=== PATIENT | male | born 1935 | race Caucasian/White ===

== ENCOUNTER → 2023-02-08 | Outpatient (CLI) | payer MEDICARE, SELFPAY ==
--- OUTSIDE RECORDS SUMMARY | 2023-02-08 06:58 | XMS RPT_ITS | CCD ---
Author Name Unknown Address [address] [place] [address] Organization [facility] Care Team Providers Care Electric Locomotive Firer/Fireman Name Role Phone Chris Nataliia Upton Unavailable Veronica PRESLEY, Janice Floyd Unavailable Unavailable PerezNataliia Unavailable Medications Completed/Discontinued Medications Medication Drug Class(es) Dates Sig (Normalized) Sig (Original) aspirin 81 mg oral tablet (6 sources) Platelet Aggregation Inhibitor, Nonsteroidal Anti-inflammatory Drug Start: 05-12-2010 take 1 tablet by mouth once daily ASPIRIN 81 MG TABS One tablet by mouth daily ASPIRIN [id number] Janice Martin RN Problems Active Problems Problem Classification Problem Date Documented Date Episodic/Chronic Coronary atherosclerosis and other heart disease (6 sources) Atherosclerotic heart disease of [place] coronary artery without angina pectoris; Translations: [Coronary arteriosclerosis] Onset: 01-03-2012 08-02-2016 Chronic Disorders of lipid metabolism (3 sources) Hyperlipidemia; Translations: [Hyperlipidemia, unspecified] Onset: 05-12-2010 05-12-2010 Chronic Essential hypertension (3 sources) Hypertensive disorder; Translations: [Essential (primary) hypertension] Onset: 08-31-2014 08-31-2014 Chronic Unclassified (2 sources) Long-term drug therapy; Translations: [Other terminal operations supervisor (current) drug therapy] Onset: 05-12-2010 05-12-2010 Unclassified (2 sources) 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; Translations: [Presence of aortocoronary bypass graft] Onset: 12-20-2012 08-02-2016 Past or Other Problems Problem Classification Problem Date Documented Da te Episodic/Chronic Coronary atherosclerosis and other heart disease (1 source) Presence of aortocoronary bypass graft; Translations: [Presence of aortocoronary bypass graft] Onset: 12-20-2012 08-02-2016 Episodic Nonspecific chest pain (12 sources) Precordial pain; Translations: [Chest pain, unspecified] Onset: 05-12-2010 Resolved: 08-02-2016 08-02-2016 Episodic Other aftercare (1 source) Other senior living (current) drug therapy; Translations: [Other senior living (current) drug therapy] Onset: 05-12-2010 05-12-2010 Episodic Other lower respiratory disease (6 sources) Dyspnea; Translations: [Shortness of breath] Onset: 05-12-2010 Resolved: 08-02-2016 05-12-2010 Episodic Other nutritional; endocrine; and metabolic disorders (3 sources) Body mass index (BMI) 27.0-27.9, adult; Translations: [Body mass index (BMI) 27.0-27.9, adult] Onset: 12-20-2012 12-20-2012 Episodic Other screening for suspected conditions (not mental disorders or infectious disease) (6 sources) Abnormal result of cardiovascular function study, unspecified; Translations: [Abnormal result of cardiovascular function study, unspecified] Onset: 05-12-2010 Resolved: 08-02-2016 05-12-2010 Episodic Residual codes; unclassified (3 sources) Family history of stroke; Translations: [Family history of stroke] 07-18-2013 Episodic Unclassified (1 source) Coronary artery bypass grafts x 3 ; Translations: [Presence of coronary angioplasty implant and graft] Onset: 12-20-2012 12-20-2012 Results Test Name Value Interpretation Reference Range Facil ity Vital Signs Date Time Vital Sign Value Performing Clinician Sushma gao 08-03-2016 08:39-0400 BMI (Body Mass Index) 27 kg/m2 Nataliia [facility] Work Phone: 08-03-2016 08:39-0400 BP Diastolic 70 mm[Hg] Nataliia Smith [facility] Work Phone: 08-03-2016 08:39-0400 BP Systolic 130 mm[Hg] [facility] Work Phone: 08-03-2016 08:39-0400 Height 180.34 cm Nataliia Smith [facility] Work Phone: 08-03-2016 08:39-0400 Pulse (Heart Rate) 64 /min Nataliia Perez [facility] Work Phone: 08-03-2016 08:39-0400 Respiratory Rate 20 /min Nataliia Perez [facility] Work Phone: 08-03-2016 08:39-0400 Weight 87.82 kg Nataliia Perez [facility] Work Phone: 08-12-2014 10:08-0400 BMI (Body Mass Index) 27.7 kg/m2 Janice [facility] Work Phone: 08-12-2014 10:08-0400 BP Diastolic 64 mm[Hg] Janice Martin RN [facility] Work Phone: 08-12-2014 10:08-0400 BP Systolic 124 mm[Hg] Janice Martin RN [facility] Work Phone: 08-12-2014 10:08-0400 BSA (Body Surface Area) 2.1 m2 Janice Martin RN [facility] Work Phone: 08-12-2014 10:08-0400 Pulse (Heart Rate) 56 /min Janice Martin RN [facility] Work Phone: 08-12-2014 10:08-0400 Respiratory Rate 20 /min Janice Martin RN [facility] Work Phone: 08-12-2014 10:08-0400 Weight 90.08 kg Janice Martin RN [facility] Work Phone: 07-18-2013 14:10-0400 Height 180.34 cm Janice Martin RN [facility] Work Phone: 09-13-2011 14:45-0400 Heart rate 425 ms Janice Martin RN [facility] Work Phone: 09-13-2011 14:45-0400 Heart rate 59 /min Janice Martin RN [facility] Work Phone: 09-13-2011 14:43-0400 Body Temperature 98.3 [degF] Janice Martin RN [facility] Work Phone: 09-13-2011 [id number] Pulse Oximetry 96 % Janice Martin RN [facility] Work Phone: Procedures Date Procedure Procedure Detail Performing Clinician Start: 08-03-2016 End: 08-03-2016 MICHELLE Munroe MD Start: 08-03-2016 End: 08-03-2016 Follow Up Appt 1 year Wilber Munroe MD Start: 08-12-2014 End: 08-12-2014 Dietary management education, guidance, and counseling Janice Martin RN Start: 08-12-2014 End: 08-12-2014 MICHELLE Munroe MD Start: 08-12-2014 End: 08-13-2014 Documentation of current medications Wilber Munroe MD Start: 08-12-2014 End: 08-12-2014 Follow Up Appt 1 year Wilber Munroe MD Start: 12-09-2013 End: 12-09-2013 *Hepatic Function Panel Sandy Castillo Start: 12-09-2013 End: 12-09-2013 Lipid panel [AGGREGATE] Sandy Castillo Start: 07-18-2013 End: 07-18-2013 Follow Up Appt 6 months Sandy Castillo Start: 07-18-2013 End: 07-18-2013 MMM Wilber Munroe MD Start: 06-12-2013 End: 07-08-2013 *Hepatic Function Panel Sandy Castillo Start: 06-12-2013 End: 07-08-2013 Lipid panel [AGGREGATE] Sandy Castillo Start: 12-20-2012 Coronary artery bypa ss grafts x 3 CORONARY ARTERY BYPASS GRAFT, THREE VESSEL, HX OF Janice Martin RN Start: 12-20-2012 End: 12-20-2012 Follow Up Appt 6 months Sandy Castillo Start: 12-20-2012 End: 12-20-2012 MMM Wilber Munroe MD Start: 12-13-2012 End: 12-17-2012 *Hepatic Function Panel Sandy Castillo Start: 12-13-2012 End: 12-17-2012 Lipid panel [AGGREGATE] Sandy Castillo Start: 07-09-2012 End: 07-09-2012 SECOND HAND Mariana Hall PA-C Work Phone: Start: 07-09-2012 End: 07-09-2012 Follow Up Appt 1 year Mariana sherman PA-C Work Phone: Start: 06-12-2012 End: 07-01-2012 *Hepatic Function Panel Sandy Castillo Start: 06-12-2012 End: 07-01-2012 Lipid panel [AGGREGATE] Sandy Castillo Start: 01-03-2012 End: 01-03-2012 Follow Up Appt 6 months Sandy Castillo Start: 09-13-2011 End: 10-20-2011 *Hepatic Function Panel Sandy Castillo Start: 09-13-2011 End: 09-13-2011 Follow Up Appt 3 months Sandy Castillo Start: 09-13-2011 End: 10-20-2011 Lipid panel [AGGREGATE] Sandy Castillo Plan of Treatment Date Care Activity Detail Author Start: 08-07-2017 End: 08-07-2017 Appointment Appointment [facility] Work Phone: Start: 08-03-2016 End: 08-03-2016 Appointment Appointment [facility] Work Phone: Start: 08-03-2016 End: 08-03-2016 SECOND HAND SECOND HAND [facility] Work Phone: Start: 08-03-2016 End: 08-03-2016 Follow Up Appt 1 year Follow Up Appt 1 year [facility] Work Phone: Start: 08-12-2014 End: 08-12-2014 SECOND HAND SECOND HAND [facility] Work Phone: Start: 08-12-2014 End: 08-12-2014 Follow Up Appt 1 year Follow Up Appt 1 year [facility] Work Phone: Start: 06-12-2014 End: 12-09-2013 *Hepatic Function Panel *Hepatic Function Panel [facility] Work Phone: Start: 06-12-2014 End: 12-09-2013 Lipid panel [AGGREGATE] *Lipid Profile CC PCP [facility] Work Phone: Start: 12-13-2013 End: 12-09-2013 *Hepatic Function Panel *Hepatic Function Panel [facility] Work Phone: Start: 12-13-2013 End: 12-09-2013 Lipid panel [AGGREGATE] *Lipid Profile CC PCP [facility] Work Phone: Start: 07-18-2013 End: 07-18-2013 Follow Up Appt 6 months Follow Up Appt 6 months [facility] Work Phone: Start: 07-18-2013 End: 07-18-2013 MMM MMM [facility] Work Phone: Start: 06-12-2013 End: 07-08-2013 *Hepatic Function Panel *Hepatic Function Panel [facility] Work Phone: Start: 06-12-2013 End: 07-08-2013 Lipid panel [AGGREGATE] *Lipid Profile CC PCP [facility] Work Phone: Start: 12-20-2012 End: 12-20-2012 Follow Up Appt 6 months Follow Up Appt 6 months [facility] Work Phone: Start: 12-20-2012 End: 12-20-2012 MMM MMM [facility] Work Phone: Start: 12-13-2012 End: 12-17-2012 *Hepatic Function Panel *Hepatic Function Panel [facility] Work Phone: Start: 12-13-2012 End: 12-17-2012 Lipid panel [AGGREGATE] *Lipid Profile CC PCP [facility] Work Phone: Start: 07-09-2012 End: 07-09-2012 SECOND HAND SECOND HAND [facility] Work Phone: Start: 07-09-2012 End: 07-09-2012 Follow Up Appt 1 year Follow Up Appt 1 year [facility] Work Phone: Start: 06-12-2012 End: 07-01-2012 *Hepatic Function Panel *Hepatic Function Panel [facility] Work Phone: Start: 06-12-2012 End: 07-01-2012 Lipid panel [AGGREGATE] *Lipid Profile [facility] Work Phone: Start: 01-03-2012 End: 01-03-2012 Follow Up Appt 6 months Follow Up Appt 6 months [facility] Work Phone: Start: 09-13-2011 End: 10-20-2011 *Hepatic Function Panel *Hepatic Function Panel [facility] Work Phone: Start: 09-13-2011 End: 09-13-2011 Electrocardiogram, complete EKG (In office) [facility] Work Phone: Start: 09-13-2011 End: 09-13-2011 Follow Up Appt 3 months Follow Up Appt 3 months [facility] Work Phone: Start: 09-13-2011 End: 10-20-2011 Lipid panel [AGGREGATE] *Lipid Profile [facility] Work Phone: Patient Education HYPERLIPIDEMIA [facility] Work Phone: Additional Source Comments FOR RECORDS PERTAINING TO PATIENTS WHO ARE OR HAVE BEEN ENROLLED IN A CHEMICAL DEPENDENCY/SUBSTANCEABUSE PROGRAM, SOME INFORMATION MAY BE OMITTED. This clinical summary was aggregated from multiple sources. Caution should be exercised in using it in the provision of clinical care. This summary normalizes information from multiple sources, and as a consequence, information in this document may materially change the coding, format and clinical context of patient data. In addition, data may be omitted in some cases. CLINICAL DECISIONS SHOULD BE BASED ON THE PRIMARY CLINICAL RECORDS. [employer] [facility]. provides no warranty or guarantee of the accuracy or completeness of information in this document.
[2023-02-08 07:35] LABS: Anion Gap 7 (5-15); BUN 28 mg/dL (7-18); BUN/Creat Ratio 19.9 RATIO (10-20); Calcium,Total 9.8 mg/dL (8.5-10.1); Chloride 105 mmol/L (98-107); Creatinine, Serum 1.41 mg/dL (0.70-1.30); EST Glomerular Filtration Rate 50 mL/min (>60); Est Glom Filt Rate - Afr Amer 61 mL/min (>60); Glucose 164 mg/dL (74-106); Potassium 4.3 mmol/L (3.5-5.1); Sodium Level 141 mmol/L (136-145)
== END | disposition home or self-care (01) ==
LOC: LAB 06:56
PROVIDERS: PCP Family Medicine; Visit Provider Nurse Practitioner Gerontology
DX: R06.02 Shortness of breath (principal)
CPT/HCPCS: 36415; 80048

== ENCOUNTER 2023-02-22 14:29 | Outpatient (CLI) | payer MEDICARE, SELFPAY ==
--- NOTE | 2023-02-22 14:34 | RAD_ITS ---
EXAM: XR CHEST, 2 VIEWS CLINICAL INDICATION: SOB TECHNIQUE: Frontal and lateral views of the chest. COMPARISON: XR Chest dated 04/28/2021 FINDINGS: LUNGS AND PLEURAL SPACES: Persistent right upper and left lower lobe parenchymal lung densities suggestive of scarring. Blunted left lateral costophrenic sulcus is unchanged also suggestive of scarring. HEART: Surgical changes of coronary artery bypass graft (CABG). Normal heart size. MEDIASTINUM: No mediastinal or hilar mass. BONES/JOINTS: No acute abnormality. TUBES, LINES AND DEVICES: Intracardiac device remains in place. RAD/Chest PA and Lateral IMPRESSION: Right upper and left lower lobe parenchymal lung densities suggestive of scarring. No interval change. Electronically Signed: Alonzo Calderon MD at 14:46 EST ,
--- OUTSIDE RECORDS SUMMARY | 2023-02-22 15:04 | XMS RPT_ITS | CCD ---
Author Name Unknown Address [address] [place] [address] Organization [facility] Care Team Providers Care Hotel Superintendent Name Role Phone Perez Nataliia Upton Unavailable Veronica PRESLEY, Janice Floyd Unavailable Unavailable PerezNataliia Unavailable Medications Completed/Discontinued Medications Medication Drug Class(es) Dates Sig (Normalized) Sig (Original) aspirin 81 mg oral tablet (6 sources) Platelet Aggregation Inhibitor, Nonsteroidal Anti-inflammatory Drug Start: 05-12-2010 take 1 tablet by mouth once daily ASPIRIN 81 MG TABS One tablet by mouth daily ASPIRIN [id number] Janice Martin RN Problems Active Problems Problem Classification Problem Date Documented Date Episodic/Chronic Coronary atherosclerosis and other heart disease (6 sources) Atherosclerotic heart disease of [place] coronary artery without angina pectoris; Translations: [Coronary arteriosclerosis] Onset: 01-03-2012 08-02-2016 Chronic Disorders of lipid metabolism (3 sources) Hyperlipidemia; Translations: [Hyperlipidemia, unspecified] Onset: 05-12-2010 05-12-2010 Chronic Essential hypertension (3 sources) Hypertensive disorder; Translations: [Essential (primary) hypertension] Onset: 08-31-2014 08-31-2014 Chronic Unclassified (2 sources) Long-term drug therapy; Translations: [Other supervisor intermediates (current) drug therapy] Onset: 05-12-2010 05-12-2010 Unclassified [...] 08-02-2016 Episodic Other aftercare (1 source) Other fci (current) drug therapy; Translations: [Other supervisor intermediates (current) drug therapy] Onset: 05-12-2010 05-12-2010 Episodic [...] 08-03-2016 08:39-0400 Height 180.34 cm Nataliia Smith [facility] Work Phone: 08-03-2016 08:39-0400 Pulse (Heart Rate) 64 /min Nataliia Perez [facility] Work Phone: 08-03-2016 08:39-0400 Respiratory Rate 20 /min Nataliia Perez [facility] Work Phone: 08-03-2016 08:39-0400 Weight 87.82 kg Nataliia Perez [facility] Work Phone: 08-12-2014 10:08-0400 BMI (Body Mass Index) 27.7 kg/m2 [facility] Work Phone: 08-12-2014 10:08-0400 BP Diastolic 64 mm[Hg] Janice Martin RN [facility] Work Phone: 08-12-2014 10:08-0400 BP Systolic 124 mm[Hg] Janice Martin RN [facility] Work Phone: 08-12-2014 10:08-0400 BSA (Body Surface Area) 2.1 m2 Janice Martin RN [facility] Work Phone: 08-12-2014 10:08-0400 Pulse (Heart Rate) 56 /min Janice Martin RN [facility] Work Phone: 08-12-2014 10:08-0400 Respiratory Rate 20 /min aJnice Martin RN [facility] Work Phone: 08-12-2014 10:08-0400 Weight 90.08 kg Jnaice Martin RN [facility] Work Phone: 07-18-2013 14:10-0400 Height 180.34 cm Janice Martin RN [facility] Work Phone: 09-13-2011 14:45-0400 Heart rate 425 ms Janice Martin RN [facility] Work Phone: 09-13-2011 14:45-0400 Heart rate 59 /min Janice Martin RN [facility] Work Phone: 09-13-2011 14:43-0400 Body Temperature 98.3 [degF] Janice Martin RN [facility] Work Phone: 09-13-2011 [phone] Pulse Oximetry 96 % Janice Martin RN [facility] Work Phone: Procedures Date Procedure [...] [AGGREGATE] Sandy Castillo Start: 07-09-2012 End: 07-09-2012 ARMOR OFFICER Mariana Hall PA-C Work Phone: Start: 07-09-2012 [...] Author Start: 08-07-2017 End: 08-07-2017 Appointment Appointment [facility] Work Phone: Start: 08-03-2016 End: 08-03-2016 Appointment Appointment [facility] Work Phone: Start: 08-03-2016 End: 08-03-2016 ARMOR OFFICER ARMOR OFFICER [facility] Work Phone: Start: 08-03-2016 End: 08-03-2016 Follow Up Appt 1 year Follow Up Appt 1 year [facility] Work Phone: Start: 08-12-2014 End: 08-12-2014 ARMOR OFFICER ARMOR OFFICER [facility] Work Phone: Start: 08-12-2014 End: 08-12-2014 Follow Up Appt 1 year Follow Up Appt 1 year [facility] Work Phone: Start: 06-12-2014 End: 12-09-2013 *Hepatic Function Panel *Hepatic Function Panel [facility] Work Phone: Start: 06-12-2014 End: 12-09-2013 Lipid panel [AGGREGATE] *Lipid Profile CC PCP [facility] Work Phone: Start: 12-13-2013 End: 12-09-2013 *Hepatic Function Panel *Hepatic Function Panel [facility] Work Phone: Start: 12-13-2013 End: 12-09-2013 Lipid panel [AGGREGATE] *Lipid Profile CC PCP [facility] Work Phone: Start: 07-18-2013 End: 07-18-2013 Follow Up Appt 6 months Follow Up Appt 6 months [facility] Work Phone: Start: 07-18-2013 End: 07-18-2013 MMM MMM [facility] Work Phone: Start: 06-12-2013 End: 07-08-2013 *Hepatic Function Panel *Hepatic Function Panel [facility] Work Phone: Start: 06-12-2013 End: 07-08-2013 Lipid panel [AGGREGATE] *Lipid Profile CC PCP [facility] Work Phone: Start: 12-20-2012 End: 12-20-2012 Follow Up Appt 6 months Follow Up Appt 6 months [facility] Work Phone: Start: 12-20-2012 End: 12-20-2012 MMM MMM [facility] Work Phone: Start: 12-13-2012 End: 12-17-2012 *Hepatic Function Panel *Hepatic Function Panel [facility] Work Phone: Start: 12-13-2012 End: 12-17-2012 Lipid panel [AGGREGATE] *Lipid Profile CC PCP [facility] Work Phone: Start: 07-09-2012 End: 07-09-2012 ARMOR OFFICER ARMOR OFFICER [facility] Work Phone: Start: 07-09-2012 End: [...] 6 months Follow Up Appt 6 months [facility] Work Phone: Start: 09-13-2011 End: 10-20-2011 *Hepatic Function Panel *Hepatic Function Panel [facility] Work Phone: Start: 09-13-2011 End: 09-13-2011 Electrocardiogram, complete EKG (In office) [facility] Work Phone: Start: 09-13-2011 End: 09-13-2011 Follow Up Appt 3 months Follow Up Appt 3 months [facility] Work Phone: Start: 09-13-2011 End: 10-20-2011 Lipid panel [AGGREGATE] *Lipid Profile [facility] Work Phone: Patient Education HYPERLIPIDEMIA [facility] Work Phone: Additional Source Comments [...] BE BASED ON THE PRIMARY CLINICAL RECORDS. [employer] [facility]. provides no warranty or guarantee of the accuracy or completeness of information in this document.
[2023-02-22 15:42] LABS: Absolute Lymphocyte Count 1.94 X10^3/uL (0.83-4.51); Absolute Neutrophil Count 4.8 X10^3/uL (2.0-7.7); Basophil# 0.03 X10^3/uL; Basophil% 0.4 % (0-1); Eosinophils% 2.6 % (0-5); Hematocrit 43.9 % (40-54); Hemoglobin 14.5 g/dL (13.0-16.5); Lymphocyte # 1.94 X10^3/ul (0.83-4.51); Lymphocyte % 25.4 % (19-41); Mean Corpuscular Hgb 31.1 pg (27.0-32.0); Mean Corpuscular Volume 94.2 fL (80-94); Mean Platelet Vol. 9.9 fl (6.2-12.0); Monocyte# 0.65 X10^3/uL; Monocyte% 8.5 % (0-10); NRBC Flagged by Analyzer 0 % (0-5); Neutrophil # 4.79 X10^3/uL (2.7-7.7); Neutrophil % 62.7 % (47-70); Platelet Count 288 K/mm3 (150-450); RBC Distribution Width CV 13.1 % (11.6-14.6); Red Blood Count 4.66 M/mm3 (4.6-6.2); White Blood Count 7.6 K/mm3 (4.4-11.0)
[2023-02-22 16:37] LABS: BNP,B-Type NATRIURETIC PEPTIDE 45.6 pg/mL (0-100)
[2023-02-22 16:45] LABS: Anion Gap 6 (5-15); BUN 23 mg/dL (7-18); BUN/Creat Ratio 16.2 RATIO (10-20); Calcium,Total 9.6 mg/dL (8.5-10.1); Chloride 105 mmol/L (98-107); Creatinine, Serum 1.42 mg/dL (0.70-1.30); EST Glomerular Filtration Rate 50 mL/min (>60); Est Glom Filt Rate - Afr Amer 60 mL/min (>60); Glucose 170 mg/dL (74-106); Potassium 4.1 mmol/L (3.5-5.1); Sodium Level 141 mmol/L (136-145); Thyroid Stim Hormone (TSH) 2.44 uIU/mL (0.358-3.74)
== END 2023-02-22 23:59 | disposition home or self-care (01) ==
LOC: RAD 14:33
PROVIDERS: Nurse Practitioner Gerontology; PCP Family Medicine; Referring Provider Internal Medicine Cardiovascular Disease; Visit Provider Internal Medicine Cardiovascular Disease
DX: R06.02 Shortness of breath (principal); R53.83 Other fatigue
CPT/HCPCS: 36415; 71046; 80048; 83880; 84443; 85025

== ENCOUNTER → 2023-02-26 | Outpatient (CLI) | payer MEDICARE, SELFPAY ==
--- NOTE | 2023-02-26 09:49 | ECHOCS_ITS ---
Reason For Study: SOB Procedure This was a 2D Doppler, Color Flow transthoracic echocardiogram. The study was technically difficult. Contrast injection was performed. Exam performed in department. Left Ventricle Normal LV size. Left ventricular systolic function is normal. Stage 3 diastolic dysfunction. No regional wall motion abnormalities noted. Right Ventricle Normal RV size. Normal systolic function. Atria The left atrium is mildly enlarged. Normal right atrium. Mitral Valve Normal mitral valve. Tricuspid Valve Normal tricuspid valve. Mild (1+) tricuspid valve insufficiency. Pulmonary artery systolic pressure is 40 mmHg. Aortic Valve Trisinus/trileaflet aortic valve. Mild focal aortic valve calcification. Mild (1+) aortic valve insufficiency. Pulmonic Valve Normal pulmonic valve. Great Vessels Normal aortic root. The pulmonary artery is normal size. Normal inferior vena cava. Pericardium/Pleural No pericardial effusion. Medication 22 gauge I.V. with prn adaptor inserted into right arm. Diluted definity 1.5ml given slow IV push to enhance endocardial definition. MMode/2D Measurements & Calculations LVIDd: 5.0 cm IVSd: 0.78 cm Ao root diam: 3.9 cm LVIDs: 3.7 cm LVPWd: 0.80 cm LA dimension: 4.7 cm RVDd: 3.3 cm FS: 27.4 % LAV(MOD-bp): 85.6 ml LA A4 area: 24.3 cm2 RA A4 area: 19.2 cm2 LAV(MOD-bp) Indexed: 43.2 ml/m2 LAV(MOD-sp2): 89.9 ml LAV(MOD-sp4): 77.3 ml Time Measurements MV dec time: 0.18 sec Doppler Measurements & Calculations MV E max vikram: 74.4 cm/sec Lat Peak E' Vikram: 14.7 cm/sec Med Peak E' Vikram: 8.5 cm/sec MV A max vikram: 25.6 cm/sec E/E' lat: 5.1 E/E' med: 8.7 MV E/A: 2.9 MV V2 max: 88.0 cm/sec MV P1/2t max vikram: 88.3 cm/sec Ao V2 max: 122.4 cm/sec MV max P.1 mmHg MV P1/2t: 54.4 msec Ao max P.0 mmHg MV V2 mean: 41.2 cm/sec MV dec slope: 475.4 cm/sec2 Ao V2 mean: 85.9 cm/sec MV mean P.82 mmHg Ao mean P.4 mmHg MV V2 VTI: 20.8 cm MVA(P1/2t): 4.0 cm2 Ao V2 VTI: 27.8 cm AV (velocity ratio): 0.69 AI max vikram: 356.1 cm/sec LV V1 max: 79.5 cm/sec PA V2 max: 88.2 cm/sec AI max P.8 mmHg LV V1 max P.5 mmHg PA V2 mean: 51.2 cm/sec AI dec slope: 122.0 cm/sec2 LV V1 mean P.4 mmHg AI P1/2t: 854.7 msec LV V1 mean: 54.6 cm/sec LV V1 VTI: 19.3 cm TR max vikram: 304.2 cm/sec TR max P.0 mmHg ECHO/Echo Complete W/ Contrast Interpretation Summary Normal LV size. Left ventricular systolic function is normal. Stage 3 diastolic dysfunction. The left atrium is mildly enlarged. Pulmonary artery systolic pressure is 40 mmHg. Mild focal aortic valve calcification. Mild (1+) aortic valve insufficiency. Contrast injection was performed. Ordering Physician: Diamond Moreira Referring Physician: Diamond Moreira Performed By: Leon Klein RCS
--- OUTSIDE RECORDS SUMMARY | 2023-02-26 10:13 | XMS RPT_ITS | CCD ---
Author Name Unknown Address [address] [place] [address] Organization [facility] Care Team Providers Care Inspecting Machine Adjuster Name Role Phone Chris Nataliia Upton Unavailable Veronica PRESLEY, Janice Floyd Unavailable Unavailable PerezNataliia Unavailable Medications Completed/Discontinued Medications Medication Drug Class(es) Dates Sig (Normalized) Sig (Original) aspirin 81 mg oral tablet (6 sources) Platelet Aggregation Inhibitor, Nonsteroidal Anti-inflammatory Drug Start: 05-12-2010 take 1 tablet by mouth once daily ASPIRIN 81 MG TABS One tablet by mouth daily ASPIRIN [id number] Janice Martin RN Problems Active Problems Problem Classification Problem Date Documented Date Episodic/Chronic Coronary atherosclerosis and other heart disease (6 sources) Atherosclerotic heart disease of [place] coronary artery without angina pectoris; Translations: [Coronary arteriosclerosis] Onset: 01-03-2012 08-02-2016 Chronic Disorders of lipid metabolism (3 sources) Hyperlipidemia; Translations: [Hyperlipidemia, unspecified] Onset: 05-12-2010 05-12-2010 Chronic Essential hypertension (3 sources) Hypertensive disorder; Translations: [Essential (primary) hypertension] Onset: 08-31-2014 08-31-2014 Chronic Unclassified (2 sources) Long-term drug therapy; Translations: [Other director clinical research (current) drug therapy] Onset: 05-12-2010 05-12-2010 Unclassified [...] 08-02-2016 Episodic Other aftercare (1 source) Other intermediate (current) drug therapy; Translations: [Other director clinical research (current) drug therapy] Onset: 05-12-2010 05-12-2010 Episodic [...] 08-03-2016 08:39-0400 Height 180.34 cm Nataliia Smith [facility] Work Phone: 08-03-2016 08:39-0400 Pulse (Heart Rate) 64 /min Nataliia Perez [facility] Work Phone: 08-03-2016 08:39-0400 Respiratory Rate 20 /min Nataliia Perez [facility] Work Phone: 08-03-2016 08:39-0400 Weight 87.82 kg Nataliia Perez [facility] Work Phone: 08-12-2014 10:08-0400 BMI (Body Mass Index) 27.7 kg/m2 [facility] Work Phone: 08-12-2014 10:08-0400 BP Diastolic 64 mm[Hg] Janice Martin RN [facility] Work Phone: 08-12-2014 10:08-0400 BP Systolic 124 mm[Hg] Janice Martin RN [facility] Work Phone: 08-12-2014 10:08-0400 BSA (Body Surface Area) 2.1 m2 Janice Martin RN [facility] Work Phone: 08-12-2014 10:08-0400 Pulse (Heart Rate) 56 /min Janice Martin RN [facility] Work Phone: 08-12-2014 10:08-0400 Respiratory Rate 20 /min Janice Martin RN [facility] Work Phone: 08-12-2014 10:08-0400 Weight 90.08 kg Janice Martin RN [facility] Work Phone: 07-18-2013 14:10-0400 Height 180.34 cm Janice Martin RN [facility] Work Phone: 09-13-2011 14:45-0400 Heart rate 425 ms Janice Martin RN [facility] Work Phone: 09-13-2011 14:45-0400 Heart rate 59 /min Janice Martin RN [facility] Work Phone: 09-13-2011 14:43-0400 Body Temperature 98.3 [degF] Janice Martin RN [facility] Work Phone: 09-13-2011 [id number] Pulse Oximetry 96 % Janice Martin RN [facility] Work Phone: Procedures Date Procedure Procedure Detail [...] [AGGREGATE] Sandy Castillo Start: 07-09-2012 End: 07-09-2012 CROP SPECIALIST Mariana Hall PA-C Work Phone: Start: 07-09-2012 [...] Author Start: 08-07-2017 End: 08-07-2017 Appointment Appointment [facility] Work Phone: Start: 08-03-2016 End: 08-03-2016 Appointment Appointment [facility] Work Phone: Start: 08-03-2016 End: 08-03-2016 CROP SPECIALIST CROP SPECIALIST [facility] Work Phone: Start: 08-03-2016 End: 08-03-2016 Follow Up Appt 1 year Follow Up Appt 1 year [facility] Work Phone: Start: 08-12-2014 End: 08-12-2014 CROP SPECIALIST CROP SPECIALIST [facility] Work Phone: Start: 08-12-2014 End: 08-12-2014 Follow Up Appt 1 year Follow Up Appt 1 year [facility] Work Phone: Start: 06-12-2014 [...] Lipid panel [AGGREGATE] *Lipid Profile CC PCP [facility] Work Phone: Start: 07-18-2013 End: 07-18-2013 Follow Up Appt 6 months Follow Up Appt 6 months [facility] Work Phone: Start: 07-18-2013 End: 07-18-2013 MMM MMM [facility] Work Phone: Start: 06-12-2013 End: 07-08-2013 *Hepatic Function Panel *Hepatic Function Panel [facility] Work Phone: Start: 06-12-2013 End: 07-08-2013 Lipid panel [AGGREGATE] *Lipid Profile CC PCP [facility] Work Phone: Start: 12-20-2012 End: 12-20-2012 Follow Up Appt 6 months Follow Up Appt 6 months [facility] Work Phone: Start: 12-20-2012 End: 12-20-2012 MMM MMM [facility] Work Phone: Start: 12-13-2012 End: 12-17-2012 *Hepatic Function Panel *Hepatic Function Panel [facility] Work Phone: Start: 12-13-2012 End: 12-17-2012 Lipid panel [AGGREGATE] *Lipid Profile CC PCP [facility] Work Phone: Start: 07-09-2012 End: 07-09-2012 CROP SPECIALIST CROP SPECIALIST [facility] Work Phone: Start: 07-09-2012 End: [...] 6 months Follow Up Appt 6 months [facility] Work Phone: Start: 09-13-2011 End: 10-20-2011 *Hepatic Function Panel *Hepatic Function Panel [facility] Work Phone: Start: 09-13-2011 End: 09-13-2011 Electrocardiogram, complete EKG (In office) [facility] Work Phone: Start: 09-13-2011 End: 09-13-2011 Follow Up Appt 3 months Follow Up Appt 3 months [facility] Work Phone: Start: 09-13-2011 End: 10-20-2011 Lipid panel [AGGREGATE] *Lipid Profile [facility] Work Phone: Patient Education HYPERLIPIDEMIA [facility] Work Phone: Additional Source Comments [...] BE BASED ON THE PRIMARY CLINICAL RECORDS. [employer] [facility]. provides no warranty or guarantee of the accuracy or completeness of information in this document.
== END | disposition home or self-care (01) ==
LOC: CVS 09:48
PROVIDERS: PCP Family Medicine; Referring Provider Nurse Practitioner Gerontology; Visit Provider Nurse Practitioner Gerontology
DX: R06.02 Shortness of breath (principal)
CPT/HCPCS: 93306; Q9957; A4216; C8929

== ENCOUNTER → 2023-03-21 | Outpatient (CLI) | payer MEDICARE, SELFPAY ==
[2023-03-21 09:11] LABS: Bacteria 0 SEEN /hpf (None Seen); Mucous, Urine 0 SEEN /hpf (<or=2+); Red Blood Cells-Urine 0 SEEN /hpf (0-5); White Blood Cells 0 SEEN /hpf (0-5)
[2023-03-21 10:43] LABS: Color, Urine Yellow (Yellow); Glucose, Dipstick 1000 mg/dl (Normal); Ketone-Dipstick Negative (Negative); Leukocyte Esterase-Dipstick Negative /ul (Negative); Nitrite-Dipstick Negative (Negative); Occult Blood-Urine Negative /ul (Negative); Protein-Dipstick Negative (Negative); Specific Gravity, Urine 1.015 (1.002-1.030); Urine Bilirubin Dipstick Negative (Negative); Urine Clarity Clear (Clear); Urine Urobilinogen Normal (Normal)
[2023-03-21 10:48] LABS: Anion Gap 4 (5-15); BUN 29 mg/dL (7-18); BUN/Creat Ratio 19.3 RATIO (10-20); Calcium,Total 9.6 mg/dL (8.5-10.1); Chloride 103 mmol/L (98-107); EST Glomerular Filtration Rate 47 mL/min (>60); Est Glom Filt Rate - Afr Amer 57 mL/min (>60); Glucose 178 mg/dL (74-106); Potassium 3.5 mmol/L (3.5-5.1); Sodium Level 135 mmol/L (136-145)
[2023-03-21 11:06] LABS: Squamous Epithelial Cells - UA 0-5 SEEN /hpf (0-5)
== END | disposition home or self-care (01) ==
PROVIDERS: PCP Family Medicine; Referring Provider Nurse Practitioner Family; Visit Provider Nurse Practitioner Family
DX: R30.0 Dysuria (principal); I48.11 Longstanding persistent atrial fibrillation; R06.02 Shortness of breath; I10 Essential (primary) hypertension; Z95.1 Presence of aortocoronary bypass graft
CPT/HCPCS: 36415; 80048; 81001

== ENCOUNTER → 2023-04-06 | Outpatient (CLI) | payer MEDICARE, SELFPAY ==
--- NOTE | 2023-04-06 09:25 | RAD_ITS ---
STUDY: X-RAY CHEST REASON FOR EXAM: Male, 87 years old. SOB TECHNIQUE: PA and lateral views of the chest. COMPARISON: 12/24/2023 FINDINGS: An implanted air sampling and monitoring projects over the chest. Sternal wires and mediastinal surgical clips compatible with prior CABG. Right upper lobe rounded consolidation has not significantly changed. Ill-defined infiltration left lung base is stable. There is no demonstrated pleural abnormality. Normal size heart. Normal mediastinum and ely. Normal visualized pulmonary arteries. There is atherosclerotic calcification of the aortic arch with tortuosity. There are diffuse degenerative changes of the visualized thoracic spine. Normal visualized ribs, clavicles, and shoulders. There is no demonstrated abnormality of the visualized soft tissue structures of the upper abdomen. RAD/Chest PA and Lateral IMPRESSION: No interval change. Right upper lobe consolidation is stable. Electronically Signed: Orlando Yip MD ([place]) at 19:51 EST ,
[2023-04-06 10:17] LABS: Absolute Lymphocyte Count 1.35 X10^3/uL (0.83-4.51); Absolute Neutrophil Count 4.7 X10^3/uL (2.0-7.7); Basophil# 0.03 X10^3/uL; Basophil% 0.4 % (0-1); Eosinophil# 0.17 X10^3/uL; Eosinophils% 2.5 % (0-5); Hemoglobin 14.4 g/dL (13.0-16.5); Lymphocyte # 1.35 X10^3/ul (0.83-4.51); Lymphocyte % 19.9 % (19-41); Mean Corpuscular Hgb 30.8 pg (27.0-32.0); Mean Corpuscular Volume 96.4 fL (80-94); Mean Platelet Vol. 10.4 fl (6.2-12.0); Monocyte# 0.55 X10^3/uL; Monocyte% 8.1 % (0-10); NRBC Flagged by Analyzer 0 % (0-5); Neutrophil # 4.65 X10^3/uL (2.7-7.7); Neutrophil % 68.7 % (47-70); Platelet Count 259 K/mm3 (150-450); RBC Distribution Width CV 13.4 % (11.6-14.6); RBC Distribution Width SD 47.6 fl (35.1-43.9); Red Blood Count 4.67 M/mm3 (4.6-6.2); White Blood Count 6.8 K/mm3 (4.4-11.0)
[2023-04-06 11:13] LABS: Anion Gap 5 (5-15); BUN 22 mg/dL (7-18); BUN/Creat Ratio 15.5 RATIO (10-20); Calcium,Total 9.9 mg/dL (8.5-10.1); Chloride 104 mmol/L (98-107); Creatinine, Serum 1.42 mg/dL (0.70-1.30); EST Glomerular Filtration Rate 50 mL/min (>60); Est Glom Filt Rate - Afr Amer 60 mL/min (>60); Glucose 168 mg/dL (74-106); Potassium 3.9 mmol/L (3.5-5.1); Sodium Level 138 mmol/L (136-145)
== END | disposition home or self-care (01) ==
LOC: RAD 09:20
PROVIDERS: PCP Family Medicine; Referring Provider Nurse Practitioner Family; Visit Provider Nurse Practitioner Family
DX: R06.02 Shortness of breath (principal); R06.01 Orthopnea; E78.2 Mixed hyperlipidemia
CPT/HCPCS: 36415; 71046; 80048; 83880; 85025

== ENCOUNTER → 2023-06-13 | Outpatient (CLI) | payer MEDICARE, SELFPAY ==
[2023-06-13 10:55] LABS: Hemoglobin A1c 7.2 % (3.8-5.6)
[2023-06-13 10:56] LABS: AST(SGOT) 20 U/L (15-37); Alanine Aminotransfer ALT/SGPT 28 U/L (16-61); Albumin, Serum 4.1 g/dL (3.2-5.0); Alkaline Phosphatase 60 U/L (45-117); Anion Gap 5 (5-15); BUN 31 mg/dL (7-18); BUN/Creat Ratio 21.1 RATIO (10-20); Calcium,Total 9.7 mg/dL (8.5-10.1); Chloride 103 mmol/L (98-107); Creatinine, Serum 1.47 mg/dL (0.70-1.30); EST Glomerular Filtration Rate 48 mL/min (>60); Est Glom Filt Rate - Afr Amer 58 mL/min (>60); Glucose 158 mg/dL (74-106); Potassium 4.1 mmol/L (3.5-5.1); Protein, Total 8.1 g/dL (6.4-8.2); Sodium Level 137 mmol/L (136-145)
== END | disposition home or self-care (01) ==
LOC: MFPLAB 08:50
PROVIDERS: PCP Family Medicine; Visit Provider Family Medicine
DX: E11.22 Type 2 diabetes mellitus with diabetic chronic kidney disease (principal); N18.2 Chronic kidney disease, stage 2 (mild)
CPT/HCPCS: 36415; 80053; 83036

== ENCOUNTER → 2023-08-03 | Outpatient (CLI) | payer MEDICARE, SELFPAY ==
[2023-08-03 09:42] LABS: Absolute Lymphocyte Count 1.14 X10^3/uL (0.83-4.51); Absolute Neutrophil Count 4.4 X10^3/uL (2.0-7.7); Basophil# 0.04 X10^3/uL; Basophil% 0.6 % (0-1); Eosinophils% 3.2 % (0-5); Hematocrit 42.7 % (40-54); Hemoglobin 13.8 g/dL (13.0-16.5); Lymphocyte # 1.14 X10^3/ul (0.83-4.51); Mean Corp Hgb Conc 32.3 g/dL (32-36); Mean Corpuscular Hgb 30.9 pg (27.0-32.0); Mean Corpuscular Volume 95.5 fL (80-94); Mean Platelet Vol. 9.6 fl (6.2-12.0); Monocyte% 7.9 % (0-10); NRBC Flagged by Analyzer 0 % (0-5); Neutrophil # 4.41 X10^3/uL (2.7-7.7); Neutrophil % 69.8 % (47-70); Platelet Count 258 K/mm3 (150-450); RBC Distribution Width SD 45.9 fl (35.1-43.9); Red Blood Count 4.47 M/mm3 (4.6-6.2); White Blood Count 6.3 K/mm3 (4.4-11.0)
[2023-08-03 09:57] LABS: Hemoglobin A1c 7.5 % (3.8-5.6)
[2023-08-03 09:58] LABS: BNP,B-Type NATRIURETIC PEPTIDE 40.1 pg/mL (0-100)
[2023-08-03 10:00] LABS: AST(SGOT) 22 U/L (15-37); Alanine Aminotransfer ALT/SGPT 24 U/L (16-61); Albumin, Serum 3.8 g/dL (3.2-5.0); Alkaline Phosphatase 69 U/L (45-117); Anion Gap 4 (5-15); BUN 25 mg/dL (7-18); BUN/Creat Ratio 17.5 RATIO (10-20); Calcium,Total 9.1 mg/dL (8.5-10.1); Chloride 101 mmol/L (98-107); Creatinine, Serum 1.43 mg/dL (0.70-1.30); EST Glomerular Filtration Rate 49 mL/min (>60); Est Glom Filt Rate - Afr Amer 60 mL/min (>60); Globulin 3.8 g/dL (2.2-4.2); Glucose 194 mg/dL (74-106); Magnesium 2.2 mg/dL (1.6-2.6); Potassium 4.1 mmol/L (3.5-5.1); Protein, Total 7.6 g/dL (6.4-8.2); Sodium Level 135 mmol/L (136-145)
[2023-08-03 10:06] LABS: Microalbumin,Random Urine 12.6 mg/L (NO RANGE EST.); Microalbumin:Creatinine Ratio 15.1 mg/g CRE (<30 mg/g CRE)
[2023-08-07 09:09] LABS: Cholesterol 142 mg/dL (200); High Density Lipoprotein 43 mg/dL; Triglycerides 121 mg/dL; Very Low Density Lipoprotein 24 mg/dL (5-40)
== END | disposition home or self-care (01) ==
LOC: LAB 09:06
PROVIDERS: Nurse Practitioner Gerontology; PCP Family Medicine; Referring Provider Physician Assistant Medical; Visit Provider Physician Assistant Medical
DX: I25.810 Atherosclerosis of coronary artery bypass graft(s) without angina pectoris (principal); I48.91 Unspecified atrial fibrillation; E11.22 Type 2 diabetes mellitus with diabetic chronic kidney disease; I10 Essential (primary) hypertension; R06.09 Other forms of dyspnea
CPT/HCPCS: 36415; 80053; 80061; 82043; 82570; 83036; 83735; 83880; 85025